=== PATIENT | female | born 1970 | race Caucasian/White ===

== ENCOUNTER 2017-05-07 11:55 | Emergency (ER) | payer MEDICAID, OTHER ==
[~2017-05-07] VITALS: Ht 152.4 cm; Wt 98.3 kg
[~2017-05-07 11:55] MED LIST: ACET1TAB12 PO; GABA300C PO; GLIM1TAB46 PO; GUAI120015 PO; HYDR-2514 PO; HYDR-2561 PO; IBUP-1986 PO; PRED10TA PO; PRED20TA PO; TIOT18CA7 IH; [UNRECOGNIZED DRUG - CODE] IN; [UNRECOGNIZED DRUG - CODE] TP
[2017-05-07 12:04] VITALS: BP 133/68
[2017-05-07] MEDS ORDERED: METH4TAB3 PO (12:54)
[2017-05-07] MEDS ORDERED: IBUP-1984 PO (12:59)
== END 2017-05-07 13:05 | disposition home or self-care (01) ==
LOC: ER 11:57
DX: M77.31 Calcaneal spur, right foot (principal); L23.7 Allergic contact dermatitis due to plants, except food; J45.909 Unspecified asthma, uncomplicated; E11.9 Type 2 diabetes mellitus without complications; G89.29 Other chronic pain; Z90.49 Acquired absence of other specified parts of digestive tract; Z88.1 Allergy status to other antibiotic agents; Z88.8 Allergy status to other drugs, medicaments and biological substances; Z79.899 Other long term (current) drug therapy; Z59.0 Homelessness
CPT/HCPCS: 73630; 99284